=== PATIENT | male | born 1980 | race Caucasian/White ===

== ENCOUNTER → 2021-05-01 14:02 | Outpatient (REF) | payer OTHER, SELFPAY | LOC: ANHLAB 14:02 | PROVIDERS: Visit Provider Nurse Practitioner | DX: C44.329 Squamous cell carcinoma of skin of other parts of face (principal) | CPT/HCPCS: 88305 ==

== ENCOUNTER → 2021-06-26 09:48 | Outpatient (REF) | payer OTHER, SELFPAY | LOC: ANHLAB 09:48 | PROVIDERS: Visit Provider Nurse Practitioner | DX: C44.329 Squamous cell carcinoma of skin of other parts of face (principal) | CPT/HCPCS: 88305; 88331 ==

== ENCOUNTER 2022-03-14 09:22 | Emergency (ER) | payer OTHER, SELFPAY ==
[2022-03-14 09:36] VITALS: BP 125/68; PULSE 67; RESP 16; TEMP 36.1; O2SAT 99
--- NOTE | 2022-03-14 10:40 | ED.LOWEXIN ---
HPI - Extremity Injury (Lower) General Chief Complaint: Extremity Injury, Lower Stated Complaint: R heel pain Time Seen by Provider: 03/14/22 10:39 Source: patient Mode of arrival: ambulatory Limitations: no limitations History of Present Illness HPI Narrative: 41-year-old male presents today with complaints of right heel pain for the last 2 weeks. Patient denies any trauma. Patient states pain is worse in the morning and after he has been sitting for long periods of time and then gets up. Pain is focused to the medial side of the right heel. Patient denies using any [id number] pain relief medications. Patient denies any medical history issues to the right foot or plantar fasciitis. Patient does work on his feet. He has poor support in his shoes. Related Data Allergies Allergy/AdvReac Type Severity Reaction Status Date / Time No Known Allergies Allergy Verified 03/14/22 09:46 Review of Systems Review of Systems: CONSTITUTIONAL: Denies fever, chills, or sweats. EYES: Denies visual changes, redness, or discharge. ENT: Denies rhinorrhea, congestion, sore throat, or otalgia. CARDIOVASCULAR: Denies chest pain, palpitations, or edema. RESPIRATORY: Denies cough or dyspnea. GASTROINTESTINAL: Denies abdominal pain, nausea, vomiting, or diarrhea. GENITOURINARY: Denies dysuria or hematuria. SKIN: Denies rash or itching. MUSCULOSKELETAL: Right heel pain. Denies back pain, joint pain, or myalgia. NEUROLOGIC: Denies headache, numbness, dizziness, or weakness. PSYCHIATRIC: Denies anxiety or depression. [facility] Past Medical History Medical History Actinic keratosis Cutaneous horn Family History Family History Grandparent Diabetes mellitus Hypertension Family history of elevated blood lipids Cancer Mother Hypertension Family history of elevated blood lipids Father Hypertension Family history of elevated blood lipids Cancer Sibling Hypertension Social History Social History Smoking status: Current every day smoker Tobacco type: cigarettes Alcohol intake: never Exam Narrative: GENERAL: Well-appearing, well-nourished, and in no acute distress. HEAD: Normocephalic, atraumatic. EYES: PERRLA and EOMI. ENT: Nares clear, no rhinorrhea or epistaxis. Mucous membranes moist. Oropharynx without tonsillar hypertrophy exudate or other lesions. Bilateral TMs pearly huerta nonbulging NECK: Supple. No adenopathy or masses. No carotid bruits or JVD CHEST: Clear to auscultation. No respiratory distress. No wheezes rales or rhonchi HEART: Regular rate and rhythm. No murmur heard. Normal peripheral pulses. ABDOMEN: Soft, nontender, nondistended, normal active bowel sounds. EXTREMITIES: Right heel tenderness with palpation. No ecchymosis, deformity, wounds noted. Normal range of motion. No edema. SKIN: Warm, dry, no rash. NEURO: No focal deficits. Alert and oriented x3. PSYCH: Normal mood and affect. Course Vital Signs Vital signs: Vital Signs Temperature 36.1 C L 03/14/22 09:36 Pulse Rate 67 03/14/22 09:36 Respiratory Rate 16 03/14/22 09:36 Blood Pressure 125/68 03/14/22 09:36 Pulse Oximetry 99 03/14/22 09:36 Oxygen Delivery Room Air 03/14/22 09:36 Temperature 36.1 C L 03/14/22 09:36 Pulse Rate 67 03/14/22 09:36 Respiratory Rate 16 03/14/22 09:36 Blood Pressure 125/68 03/14/22 09:36 Pulse Oximetry 99 03/14/22 09:36 Oxygen Delivery Room Air 03/14/22 09:36 MDM - Extremity Injury (Lower) MDM Narrative Medical decision making narrative: 41-year-old male HPI as noted. No trauma to the heel noted. No indication for imaging at this time. Discussed plan of care with patient patient to be sent home with a nonsteroidal anti-inflammatories and follow-up with primary for further management. Differentia
== END 2022-03-14 10:55 | disposition home or self-care (01) ==
LOC: ANHED 10:52
PROVIDERS: Emergency Provider Nurse Practitioner Family
DX: M72.2 Plantar fascial fibromatosis (principal); M79.671 Pain in right foot
CPT/HCPCS: 99283

== ENCOUNTER → 2022-04-20 14:48 | Outpatient (CLI) | payer OTHER, SELFPAY ==
--- NOTE | ~2022-04-20 | XR_ITS ---
XR foot RT min 3V DATE: 04/20/2022 15:27 INDICATION: Right foot pain TECHNIQUE: 4 views COMPARISON: None FINDINGS: There is mild osteoarthritis at the first metatarsophalangeal joint. No fracture or disloc ation, periosteal reaction or bone destruction. No fracture or dislocation, periosteal reaction or bone destruction. IMPRESSION: Mild osteoarthritis at first metatarsophalangeal joint Reviewed, dictated and finalized at location B.
== END ==
PROVIDERS: PCP Internal Medicine; Visit Provider Internal Medicine
DX: M79.671 Pain in right foot (principal); M19.071 Primary osteoarthritis, right ankle and foot
CPT/HCPCS: 73630

== ENCOUNTER 2022-05-20 19:03 | Emergency (ER) | payer OTHER, SELFPAY ==
--- NOTE | ~2022-05-20 | XR_ITS ---
EXAMINATION: XR chest 2V Exam Date/Time: 05/20/2022 19:50 CDT HISTORY: chest pain X 3 DAYS, RT SIDED SHARP PAINS, NO CARDIAC HX Comparison: None available. RESULT: Lines, tubes, and devices: None. Lungs and pleura: Clear. Cardiomediastinal silhouette: Unremarkable. Other: No acute osseous or upper abdominal finding. IMPRESSION: No acute cardiopulmonary process. Reviewed, dictated and finalized at location K.
[2022-05-20 19:06] VITALS: BP 132/101; PULSE 83; RESP 16; TEMP 36.6; O2SAT 100
--- NOTE | 2022-05-20 19:11 | ECG_ITS ---
Measurements Intervals [place] Rate: 78 P: 39 MN: 143 QRS: 48 QRSD: 102 T: 50 QT: 352 QTc: 402 Interpretive Statements SINUS RHYTHM NORMAL ECG NO PREVIOUS ECG AVAILABLE FOR COMPARISON Electronically Signed On 05-21-2022 16:13:32 CDT by Erich King M.D.
[2022-05-20 19:31] LABS: Basophils Percent Auto 0.5 % (0.2-1.2); Eosinophils Absolute Auto 0.4 K/mm3 (0-0.3); Hematocrit 44.2 % (42.0-52.0); Hemoglobin 15.4 g/dL (14.0-18.0); Immature Granulocyte Absolute 0.02 K/mm3 (0.00-0.031); Immature Granulocyte Percent A 0.3 % (0-0.5); Lymphocytes Absolute Auto 3.04 K/mm3 (0.9-3.2); Lymphocytes Percent Auto 41.2 % (18.3-44.2); Mean Corpuscular HGB Conc 34.8 g/dl (32-36); Mean Corpuscular Hemoglobin 32.4 pg (26-34); Mean Corpuscular Volume 93.1 fl (80-100); Mean Platelet Volume 10.3 fl (7.4-10.4); Monocytes Absolute Auto 0.8 K/mm3 (0.1-0.6); Monocytes Percent Auto 10.6 % (2.6-8.5); Neutrophils Absolute Auto 3.1 K/mm3 (1.3-6.7); Neutrophils Percent Auto 41.4 % (45.5-73.1); Platelet Count Result 209 k/mm3 (150-375); Red Blood Count 4.75 M/mm3 (4.6-6.20); Red Cell Distribution Width 12.7 % (11.5-14.5); White Blood Count 7.4 K/mm3 (4.5-10.0)
[2022-05-20 19:34] VITALS: BP 147/90; PULSE 81; RESP 12
--- NOTE | 2022-05-20 19:34 | ED.CHESTPAIN ---
HPI - Chest Pain General Chief Complaint: Chest Pain Stated Complaint: right sided chest pain Time Seen by Provider: 05/20/22 19:25 Source: patient, RN notes reviewed and old records reviewed Mode of arrival: ambulatory Limitations: no limitations History of Present Illness HPI narrative: This is a 41 year old male with history of hyperlipidemia who presents for evaluation of right chest pain. Patient states that he has been having intermittent right anterior chest pain since Saturday. He has not associated symptoms with this pain. He denies diaphoresis, nausea, vomiting, fever, chills, shortness of breath or dizziness. He has chronic cough due to smoking. He states he gets pain is this location every year around this time. He states his pain is not worse with eating or exertion. He was working in the yard all day today and it did not get worse. He had prior to arrival but he does not have pain currently. He denies sign of dVT. Related Data Allergies Allergy/AdvReac Type Severity Reaction Status Date / Time No Known Allergies Allergy Verified 03/14/22 09:46 Review of Systems Review of Systems: All systems reviewed & are unremarkable except as noted in HPI and below Constitutional: Constitutional: Denies chills, Denies fatigue and Denies fever(s) Cardiovascular: Cardiovascular: Denies chest pain Respiratory: Respiratory: Denies chest congestion and Reports cough Gastrointestinal: Gastrointestinal: Denies abdominal pain, Denies nausea and Denies vomiting PMF Past Medical History Medical History (Updated 05/21/22 @ 00:00 by Shirin Crabtree) Actinic keratosis Cutaneous horn Hyperlipidemia Family History Family History Grandparent Diabetes mellitus Hypertension Family history of elevated blood lipids Cancer Mother Hypertension Family history of elevated blood lipids Father Hypertension Family history of elevated blood lipids Cancer Sibling Hypertension Social History Social History Smoking status: Current every day smoker Tobacco type: cigarettes Alcohol intake: never Exam Const: General: alert Orientation/consciousness: patient oriented x3 Limitations: no limitations HENMT: Head: normal to inspection Face and sinus: normal facial exam Throat: posterior oropharynx normal Eyes: EOM: EOMs intact bilaterally Neck: Neck: normal visual inspection Chest: Chest palpation & inspection: normal inspection of the chest Resp: Effort & Inspection: normal respiratory effort Auscultation: clear to auscultation bilaterally Cardio: Rate: regular rate Rhythm: regular rhythm Heart sounds: no murmurs GI: GI Palp: Yes Soft to palpation, No Tenderness to palpation present (GI), No Guarding due to palpation present (GI) and No Rigid due to palpation Auscultation: normal bowel sounds Skin: General skin exam: normal color Rashes: no rashes Wounds: no wounds Neuro: General: patient oriented x3, moves all extremities and CN's II-XI intact bilaterally Psych: Mental Status: mental status grossly normal Affect: normal affect Attitude: cooperative Course Reevaluation(s) Reevaluation #1: PAtient has no complaints. He is PERC negative troponin negative. He presented with atypical chest pain. He is stable for discharge with outpatient follow up . Date: 05/20/22 Time: 23:08 Vital Signs Vital signs: Vital Signs Temperature 97.9 F 05/20/22 19:06 Pulse Rate 83 05/20/22 19:06 Respiratory Rate 16 05/20/22 19:06 Blood Pressure 132/101 H 05/20/22 19:06 Pulse Oximetry 100 05/20/22 19:06 Oxygen Delivery Room Air 05/20/22 19:06 Temperature 97.9 F 05/20/22 19:06 Pulse Rate 61 05/20/22 23:12 Respiratory Rate 16 05/20/22 23:12 Blood Pressure 124/76 05/20/22 23:12 Pulse Oximetry 96 05/20/22 23:12 Oxygen Delivery Room Air 05/20/22 19:33
[2022-05-20] MEDS: ASPIRIN 81 MG CHEWABLE TABLET 324 MG PO (19:36)
[2022-05-20 19:41] LABS: Partial Thromboplastin Time 27.2 SECONDS (22.3-36.8)
[2022-05-20 19:42] LABS: Alanine Aminotransferase 37 U/L (6-50); Albumin Level 4.5 g/dL (3.5-5.1); Alkaline Phosphatase 84 U/L (38-126); Anion Gap 8 mmol/L (8-16); Aspartate Amino Transferase 33 U/L (17-59); Bilirubin,Total 0.4 mg/dL (0.2-1.3); Blood Urea Nitrogen 16 mg/dL (9-20); Calcium 9.3 mg/dL (8.4-10.2); Carbon Dioxide 29 mmol/L (22-30); Chloride 102 mmol/L (98-107); Estimated CRCL calculation 94 ml/min; Estimated Glomerular Filt Rate > 60; Glucose 106 mg/dL (65-110); Lipase 168 U/L (23-300); Potassium 4.1 mmol/L (3.4-5.0); Sodium 139 mmol/L (137-145)
[2022-05-20 19:53] LABS: Troponin I < 0.012 ng/mL (0.000-0.034)
[2022-05-20 20:29] VITALS: BP 137/86; PULSE 73; RESP 19; O2SAT 96
[2022-05-20 21:53] VITALS: BP 124/69; PULSE 59; RESP 14; O2SAT 96
[2022-05-20 23:01] LABS: Troponin I < 0.012 ng/mL (0.000-0.034)
[2022-05-20 23:12] VITALS: BP 124/76; PULSE 61; RESP 16; O2SAT 96
== END 2022-05-20 23:18 | disposition home or self-care (01) ==
PROVIDERS: Emergency Medicine; Emergency Provider General Practice; PCP Internal Medicine
DX: R07.89 Other chest pain (principal); E78.5 Hyperlipidemia, unspecified; F17.210 Nicotine dependence, cigarettes, uncomplicated
CPT/HCPCS: 36415; 71046; 80053; 83690; 84484; 85025; 85610; 85730; 93005; 99284; A9270